=== PATIENT | female | born 1975 | race African-American/Black ===

== ENCOUNTER → 2023-05-08 | Day surgery (SDC) | payer OTHER | LOC: BICULT 12:35 | PROVIDERS: ATTEND Family Medicine | DX: C50.411 Malignant neoplasm of upper-outer quadrant of right female breast (principal); Z17.0 Estrogen receptor positive status [ER+] | CPT/HCPCS: 19083; 19084; 88305; 88341; 88342; 88374 ==

== ENCOUNTER 2023-07-20 09:28 | Outpatient (CLI) | payer OTHER ==
[2023-07-20 10:58] LABS: #Basophils 0.1 10x3/uL (0.0-0.2); #Eosinphils 0.4 10x3/uL (0.0-0.5); #Monocytes 0.5 10x3/uL (0.0-1.1); #Neutrophils 7.2 10x3/uL (1.5-8.4); %Basophils 0.5 % (0.0-2.0); %Eosinophils 3.6 % (0.0-6.0); %Lymphocytes 26.5 % (18.0-47.0); %Monocytes 4.4 % (0.0-10.0); %Neutrophils 64.6 % (40.0-75.0); Hematocrit 34.9 % (34.9-44.5); Hemoglobin 10.6 g/dL (12.0-15.5); Mean Corpuscular HGB CONC 30.4 g/dL (32.0-36.0); Mean Corpuscular Hemoglobin 23.3 pg (27.0-33.0); Mean Corpuscular Volume 76.9 fl (81.6-98.3); Mean Platelet Volume 11.3 fl (7.4-10.4); Platelet Count 324 10x3/uL (150-450); RBC Distribution Width 19.7 % (11.5-14.5); Red Blood Cell (RBC) Count 4.54 10x6/uL (3.90-5.03); White Blood Cell (WBC) Count 11.2 10x3/uL (3.5-10.5)
[2023-07-20 11:03] LABS: BHCG - Serum Negative (NEGATIVE); Pregs Control Background? CLEAR/WHITE (CLR/WHITE); Pregs Control Bar Appear? YES (CONTROL BAR)
[2023-07-20 11:11] LABS: Anion Gap 15 mmol/L (10-20); BUN (Urea Nitrogen) 7 mg/dL (7.0-18.7); Calc. Creatinine Clearance 0 mL/min (70-130); Calcium 9.2 mg/dL (7.8-10.44); Carbon Dioxide 22 mmol/L (22-29); Chloride 107 mmol/L (98-107); Estimated GFR 102; Glucose 124 mg/dL (70-105); Potassium 4.6 mmol/L (3.5-5.1); Sodium 139 mmol/L (136-145)
== END 2023-07-20 09:29 | disposition home or self-care (01) ==
LOC: LABBT 09:28
PROVIDERS: ATTEND Specialist
DX: Z01.812 Encounter for preprocedural laboratory examination (principal); C50.911 Malignant neoplasm of unspecified site of right female breast
CPT/HCPCS: 80048; 84703; 85025

== ENCOUNTER 2023-07-25 07:31 | Observation (INO) | payer OTHER ==
[2023-07-25] MEDS ORDERED: Ketorolac Tromethamine 30 MG/ML VIAL ONE (09:05)
[2023-07-25] MEDS ORDERED: Sodium Chloride 0.9% 100 ML ONE (09:05)
[2023-07-25] MEDS ORDERED: Acetaminophen 500 MG TAB ONE ×2 (09:05)
[2023-07-25] MEDS ORDERED: CEFAZOLIN 2 GM VIAL ONE (09:05)
[2023-07-25] MEDS ORDERED: Fentanyl 250 MCG/5 ML VIAL ONE (10:26)
[2023-07-25] MEDS ORDERED: Rocuronium Bromide 50 MG/5 ML VIAL ONE (10:26)
[2023-07-25] MEDS ORDERED: Bupivacaine 0.25% HCL 30 ML VIAL ONE (10:28)
[2023-07-25] MEDS ORDERED: Isosulfan Blue 50 MG/5 ML VIAL ONE (10:28)
[2023-07-25] MEDS ORDERED: EPINEPHrine 1 MG/ML AMP ONE (10:28)
[2023-07-25] MEDS ORDERED: Dexmedetomidine 200 MCG/2 ML VIAL ONE (10:37)
[2023-07-25] MEDS ORDERED: fentaNYL 50 mcg/mL 1 mL Vial ONE ×3 (10:46→15:11)
[2023-07-25] MEDS ORDERED: Ropivacaine 0.2% HCl/PF 20 ML ONE (10:46)
[2023-07-25] MEDS ORDERED: Ropivacaine 0.5% HCl/PF (150 MG/30 ML VIAL) ONE ×2 (10:46→11:09)
[2023-07-25] MEDS ORDERED: Midazolam HCl 2 mg/2 ml Vial ONE (10:46)
[2023-07-25] MEDS ORDERED: Rocuronium Bromide 10 MG/ML (10ML VIAL) ONE (11:18)
[2023-07-25] MEDS ORDERED: ePHEDrine Sulfate 50 MG/10 ML VIAL ONE (11:18)
[2023-07-25] MEDS ORDERED: Lidocaine 1% PF 5 ML VIAL ONE (11:18)
[2023-07-25] MEDS ORDERED: PROPOFOL 200 MG/20 ML VIAL ONE (11:18)
[2023-07-25] MEDS ORDERED: fentaNYL PF 100 MCG/2 ML SYRINGE ONE (13:21)
[2023-07-25] MEDS ORDERED: HYDROmorphone 0.5 MG/0.5 ML SYRINGE ONE ×2 (15:24→16:09)
[2023-07-25] MEDS ORDERED: Promethazine HCl 25 MG/ML VIAL ONE (15:35)
[2023-07-25] MEDS ORDERED: Promethazine HCl 25 MG/ML VIAL IM PRN ×2 (16:20→16:34)
[2023-07-25] MEDS ORDERED: diphenhydrAMINE 50 MG/ML VIAL IM PRN (16:20)
[2023-07-25] MEDS ORDERED: Naloxone HCl 0.4 mg/ml Vial IV PRN (16:20)
[2023-07-25] MEDS ORDERED: Ondansetron PF 4 MG/2 ML Vial IVP PRN ×2 (16:20→16:34)
[2023-07-25] MEDS ORDERED: HYDROmorphone 10 mg/100 ml CADD IVPB PRN (16:20)
[2023-07-25] MEDS ORDERED: diphenhydrAMINE 25 MG CAP PO PRN (16:20)
[2023-07-25] MEDS ORDERED: diphenhydrAMINE 50 MG/ML VIAL IVP PRN (16:20)
[2023-07-25] MEDS ORDERED: Communication Order-Pharmacy FS SCH (16:30)
[2023-07-25] MEDS ORDERED: hydrALAZINE 20 MG/ML VIAL SLOW IVP PRN (16:34)
[2023-07-25] MEDS ORDERED: Dextrose 50% Abboject 50 ML SYRINGE SLOW IVP PRN (16:34)
[2023-07-25] MEDS ORDERED: Ipratropium/Albuterol 3 ML NEB NEB PRN (16:34)
[2023-07-25] MEDS ORDERED: Dextrose 5% in Water 1,000 ML IV PRN (16:34)
[2023-07-25] MEDS ORDERED: Glucagon 1 MG/ML KIT IM PRN (16:34)
[2023-07-25] MEDS ORDERED: D5 1/2 NS w/20 mEq KCL 1,000 ML IV SCH (16:34)
[2023-07-25 19:30] VITALS: BMI 39.9
[2023-07-25] MEDS ORDERED: Senokot 8.6 MG TAB PO SCH (21:00)
[2023-07-25] MEDS: Famotidine 20 MG TAB PO SCH (21:03)
[2023-07-26 08:51] LABS: #Eosinphils 0.3 thou/uL (0.0-0.7); #Monocytes 0.7 thou/uL (0.11-0.59); #Neutrophils 9.6 thou/uL (1.40-6.50); %Basophils 0.3 % (0.0-1.0); %Eosinophils 2.1 % (0.0-10.0); %Lymphocytes 22.1 % (21.0-51.0); %Monocytes 5.3 % (0.0-10.0); %Neutrophils 69.9 % (42.0-75.0); Hematocrit 31.8 % (36.0-47.0); Hemoglobin 9.9 g/dL (12.0-16.0); Mean Corpuscular HGB CONC 31.1 g/dL (32.0-36.0); Mean Corpuscular Volume 77.2 fl (78.0-98.0); Mean Platelet Volume 10.7 fL (7.4-10.4); Platelet Count 270 10x3/uL (130-400); RBC Distribution Width 19.9 % (11.5-14.5); Red Blood Cell (RBC) Count 4.12 mill/uL (4.20-5.40); White Blood Cell (WBC) Count 13.7 10x3/uL (4.8-10.8)
[2023-07-26] MEDS: Famotidine 20 MG TAB PO SCH (09:00)
[2023-07-26 09:16] LABS: Anion Gap 11 mmol/L (10-20); BUN (Urea Nitrogen) 6 mg/dL (7.0-18.7); Calc. Creatinine Clearance 182 mL/min (70-130); Calcium 8.7 mg/dL (7.8-10.44); Carbon Dioxide 21 mmol/L (22-29); Chloride 108 mmol/L (98-107); Estimated GFR 104; Glucose 111 mg/dL (70-105); Potassium 4.2 mmol/L (3.5-5.1); Sodium 136 mmol/L (136-145)
[2023-07-26 12:50] VITALS: BP 163/84; TEMP 98.2
== END 2023-07-26 14:28 | disposition home or self-care (01) ==
LOC: SDC 07:31 → SJJU 16:06 → UNDODISOB 07-26 11:48
PROVIDERS: ADMIT Specialist; ATTEND Specialist
PROC: 0HBV0ZZ Excision of Bilateral Breast, Open Approach (ICD-10-PCS; principal; 2023-07-25)
PROC: 07B50ZZ Excision of Right Axillary Lymphatic, Open Approach (ICD-10-PCS; 2023-07-25)
DX: C50.511 Malignant neoplasm of lower-outer quadrant of right female breast (principal); C50.411 Malignant neoplasm of upper-outer quadrant of right female breast; N60.22 Fibroadenosis of left breast; Z17.0 Estrogen receptor positive status [ER+]; F17.210 Nicotine dependence, cigarettes, uncomplicated
CPT/HCPCS: 36415; 78195; 80048; 85025; 88307; 88309; 88342; A9541; J0171; J1170; J1885; J2250; J2405; J2550; J2704; J2795; J3010; J3480; J3490; Q9968; S0020

== ENCOUNTER 2023-08-30 12:58 | Outpatient (CLI) | payer OTHER ==
[~2023-08-30 12:58] MED LIST: Bupivacaine 0.25% HCL 30 ML VIAL ONE; EPINEPHrine 1 MG/ML AMP ONE; Lidocaine 2% PF 5 ML VIAL ONE; fentaNYL PF 100 MCG/2 ML SYRINGE ONE
== END 2023-08-30 12:59 | disposition home or self-care (01) ==
LOC: ULT 12:58
PROVIDERS: ATTEND Internal Medicine
DX: Z51.11 Encounter for antineoplastic chemotherapy (principal); C50.411 Malignant neoplasm of upper-outer quadrant of right female breast; I08.1 Rheumatic disorders of both mitral and tricuspid valves; Z79.899 Other long term (current) drug therapy
CPT/HCPCS: 93306